=== PATIENT | male | born 1960 | race Caucasian/White ===

== ENCOUNTER 2016-12-24 10:25 | Day surgery (SDC) | payer OTHER ==
[~2016-12-24 10:25] MED LIST: Cefuroxime 10 MG/ML SYRINGE EYERT SCH; Lidocaine 1% PF 2 ML SDV INJECT SCH; Pilocarpine 4% Ophth Soln 15 ML Bot EYERT SCH
[2016-12-24] MEDS: Polymyxin B/Trimethoprim 10 ML Bottle EYERT SCH ×3 (11:39→13:34)
--- NOTE | 2016-12-24 11:42 | PCM.PREANE ---
Preanesthetic Assessment - Anesthesia/Transfusion/Family Hx Anesthesia History: Prior Anesthesia Without Reaction Family History of Anesthesia Reaction: No Transfusion History: No Prior Transfusion(s) - Review of Systems General: No Symptoms Pulmonary: Cough Cardiovascular: Dyspnea on Exertion Gastrointestinal: No Symptoms Neurological: No Symptoms Other: Reports: None - Physical Assessment NPO Status Date: 12/23/16 NPO Status Time: 00:00 Pulse: 54 O2 Sat by Pulse Oximetry: 96 Respiratory Rate: 20 Blood Pressure: 173/65 Temperature: 36.7 C Height: 1.63 m Weight: 136.078 kg ASA Class: 3 Mental Status: Alert & Oriented x3 Airway Class: Mallampati = 3 Dentition: Reports: Missing Tooth/Teeth, Caries Thyro-Mental Finger Breadths: 2 Mouth Opening Finger Breadths: 2 ROM/Head Extension: Limited/Partial Lungs: Clear to Auscultation, Normal Respiratory Effort Cardiovascular: Regular Rate, Regular Rhythm, No Murmurs - Allergies Allergies/Adverse Reactions: Allergies Allergy/AdvReac Type Severity Reaction Status Date / Time No Known Allergies Allergy Verified 12/23/16 14:47 - Blood Blood Available: No Product(s) Available: None - Anesthesia Plan Pre-Op Medication Ordered: None - Acknowledgements Anesthesia Type Planned: MAC Pt an Appropriate Candidate for the Planned Anesthesia: Yes Alternatives and Risks of Anesthesia Discussed w Pt/Guardian: Yes Pt/Guardian Understands and Agrees with Anesthesia Plan: Yes PreAnesthesia Questionnaire Cardiovascular History: Reports: [place] (2005) - SUBSTANCE USE Days Per Week of Alcohol Use: 1 Number of Drinks Per Day: 6 Total Drinks Per Week: 6 Recreational Drug Use History: No - HOME MEDS Home Medications: Home Meds Aspirin 192 mg PO DAILY 12/23/16 [History] Escitalopram [Lexapro] 10 mg PO DAILY 12/23/16 [History] Lisinopril [Lisinopril] 20 mg PO DAILY 12/23/16 [History] Rosuvastatin Calcium [Rosuvastatin Calcium] 10 mg PO DAILY 12/23/16 [History] Timolol Maleate [Timoptic 0.25% Ophth Soln] 1 drop EYEBOTH ASDIRECTED 12/23/16 [ History] - CURRENT (IN HOUSE) MEDS Current Meds: Current Medications Brimonidine Tartrate (Alphagan 0.2% Ophth Soln) 0 ml EYERT ASDIRECTED EARL Stop: 12/24/16 18:00 Cefuroxime Sodium (Zinacef) 0 mg EYERT ASDIRECTED EARL Stop: 12/24/16 18:00 Lidocaine HCl (Xylocaine-Mpf 1%) 10 ml INJECT ASDIRECTED EARL Stop: 12/24/16 18:00 Phenylephrine HCl ([place]-Synephrine 2.5% Ophth Soln) 0 ml EYERT ASDIRECTED EARL Stop: 12/24/16 18:00 Pilocarpine HCl (Pilocar 4% Ophth Soln) 0 ml EYERT ASDIRECTED EARL Stop: 12/24/16 18:00 Polymyxin/Trimethoprim Sulfate (Polytrim Ophth Soln) 0 ml EYERT ASDIRECTED EARL Stop: 12/24/16 18:00 Tetracaine HCl (Tetracaine 0.5% Steri-Unit Ashly) 0 ml EYERT ASDIRECTED EARL Stop: 12/24/16 18:00 Tropicamide (Mydriacyl 1% Ophth Soln) 0 ml EYERT ASDIRECTED EARL Stop: 12/24/16 18:00
[2016-12-24] MEDS: Brimonidine 0.2% Ophth Soln 5 ML Bottle EYERT SCH ×3 (11:44→13:34)
[2016-12-24] MEDS: Phenylephrine 2.5% Ophth Soln 2 ML Bot EYERT SCH ×5 (11:50→13:10)
[2016-12-24] MEDS: Tetracaine HCl/PF 0.5% 4 ML Bottle EYERT SCH ×2 (13:04→13:23)
--- NOTE | 2016-12-24 13:33 | PCM48HPAN ---
Post Anesthesia Note - EVALUATION WITHIN 48HRS OF ANESTHETIC Vital Signs in Normal Range: Yes Patient Participated in Evaluation: Yes Respiratory Function Stable: Yes Airway Patent: Yes Cardiovascular Function Stable: Yes Hydration Status Stable: Yes Pain Control Satisfactory: Yes Nausea and Vomiting Control Satisfactory: Yes Mental Status Recovered: Yes
== END 2016-12-24 13:46 | disposition home or self-care (01) ==
LOC: JD.SDS 10:25
PROVIDERS: ATTEND Ophthalmology
DX: H25.89 Other age-related cataract (principal); H25.812 Combined forms of age-related cataract, left eye; H31.011 Macula scars of posterior pole (postinflammatory) (post-traumatic), right eye; H02.831 Dermatochalasis of right upper eyelid; H02.834 Dermatochalasis of left upper eyelid; E78.00 Pure hypercholesterolemia, unspecified; I10 Essential (primary) hypertension; Z87.891 Personal history of nicotine dependence; Z98.890 Other specified postprocedural states; Z79.899 Other long term (current) drug therapy
CPT/HCPCS: 66984; A9270; C1780; J0697

== ENCOUNTER → 2017-02-25 | Day surgery (SDC) | payer OTHER ==
[~2017-02-25] MED LIST changes: +Brimonidine 0.2% Ophth Soln 5 ML Bottle EYERT SCH; -Cefuroxime 10 MG/ML SYRINGE EYERT SCH; -Lidocaine 1% PF 2 ML SDV INJECT SCH; +Phenylephrine 2.5% Ophth Soln 2 ML Bot EYERT SCH; -Pilocarpine 4% Ophth Soln 15 ML Bot EYERT SCH
== END ==
LOC: JD.SDS 09:32
PROVIDERS: ATTEND Ophthalmology
DX: H26.491 Other secondary cataract, right eye (principal); H40.043 Steroid responder, bilateral; H02.831 Dermatochalasis of right upper eyelid; H02.834 Dermatochalasis of left upper eyelid; H31.011 Macula scars of posterior pole (postinflammatory) (post-traumatic), right eye; I10 Essential (primary) hypertension; E78.00 Pure hypercholesterolemia, unspecified; Z98.41 Cataract extraction status, right eye; Z96.1 Presence of intraocular lens; Z79.899 Other long term (current) drug therapy; Z98.890 Other specified postprocedural states; Z87.891 Personal history of nicotine dependence

== ENCOUNTER 2017-12-09 13:01 | Emergency (ER) | payer OTHER ==
[2017-12-09] MEDS ORDERED: Sodium Chloride 0.9% 1,000 ML IV ONE (13:37)
--- NOTE | 2017-12-09 14:14 | EDM.PDOC ---
ED HPI GENERAL MEDICAL PROBLEM - General Chief Complaint: General Stated Complaint: DIZZINESS/STIFF MUSCLES Time Seen by Provider: 12/09/17 13:10 - History of Present Illness INITIAL COMMENTS - FREE TEXT/NARRATIVE: Patient is a 57-year-old male accompanied by his mother presented today to the emergency department for an evaluation dizziness and vertigo type sensation which has started earlier this morning approximately 4 AM. He stated that he was laying on his back and rapidly turning towards his left side earlier this morning approximately 4 AM when he started having dizziness type sensation which she describes as the whole room was spinning, which she stated that lasted less than few seconds. He also stated that he has similar type of sensation approximately 3 months ago which subsided on its own without any treatment. Prior to arrival to the emergency department, he went to walk in clinic that he was advised to come to the emergency department for further evaluation. Currently he denies any dizziness or vertigo type sensation. He further denies any symptoms of headache, visual changes, tinnitus, fever, chest pain or palpitation, shortness of breath, or paresthesia. He denies any history of stroke, seizure, neck or back pain. He denies any pain in general. However he stated that he has a history of anxiety and does take lorazepam on a daily basis. He denies any other concerns at this time. - Related Data Allergies Allergy/AdvReac Type Severity Reaction Status Date / Time No Known Allergies Allergy Verified 12/09/17 13:15 Home Meds: Home Meds Aspirin 81 mg PO DAILY 12/23/16 [History] Escitalopram [Lexapro] 10 mg PO DAILY 12/23/16 [History] Lisinopril 20 mg PO DAILY 12/23/16 [History] Rosuvastatin Calcium 10 mg PO DAILY 12/23/16 [History] Meclizine [Antivert] 25 mg PO BID PRN #14 tab 12/09/17 [Rx] Past Medical History Cardiovascular History: Reports: Hypert[place], [place] Psychiatric History: Reports: Anxiety Dermatologic History: Reports: Psoriasis Social & Family History - Tobacco Use Smoking Status *Q: Former Smoker Used Tobacco, but Quit: Yes Month/Year Tobacco Last Used: 2005 - Living Situation & Occupation Living situation: Reports: with Spouse, Other Occupation: Other ED ROS GENERAL - Review of Systems Review Of Systems: ROS reveals no pertinent complaints other than HPI. ED EXAM, GENERAL - Physical Exam Exam: See Below Exam Limited By: No Limitations General Appearance: Alert, WD/WN, No Apparent Distress, Anxious Ears: Normal External Exam, Normal Canal, Hearing Grossly Normal, Normal TMs Ear Exam: Bilateral Ear: Auricle Normal, Canal Normal, TM normal Nose: Normal Inspection, Normal Mucosa, No Blood Throat/Mouth: Normal Inspection, Normal Lips, Normal Teeth, Normal Gums, Normal Oropharynx, Normal Voice, No Airway Compromise Head: Atraumatic, Normocephalic Neck: Normal Inspection, Supple, Non-Tender, Full Range of Motion Respiratory/Chest: No Respiratory Distress, Lungs Clear, Normal Breath Sounds Cardiovascular: Normal Peripheral Pulses, Regular Rate, Rhythm GI/Abdominal: Normal Bowel Sounds, Soft, Non-Tender Extremities: Normal Inspection, Normal Range of Motion, Non-Tender, Normal Capillary Refill, No Pedal Edema Neurological: Alert, Oriented, Normal Cognition, Normal Gait, Normal Reflexes, No Motor/Sensory Deficits, Other (Negative Belinda's and Errol-Hallpike maneuver) Psychiatric: Normal Affect, Normal Mood Skin Exam: Warm, Dry, Intact, Normal Color, No Rash Course - Vital Signs Last Recorded V/S: Last Vital Signs Temp 37.1 C 12/09/17 13:15 Pulse 78 12/09/17 13:15 Resp 18 12/09/17 13:15 BP 179/84 H 12/09/17 13:15 Pulse Ox 96 12/09/17 13:15 - Orders/Labs/Meds Labs: Laboratory Tests 12/09/17 12/09/17 Range/Units 14:00 14:00 WBC 11.30 H (4.23-9.07) K/mm3 RBC 4.76 (4.63-6.08) M/mm3 Hgb 14.2 (13.7-17.5) gm/L Hct 42.0 (40.1-51.0) % MCV 88.2 (79.0-92.2) fl MCH 29.8 (25.7-32.2) pg MCHC 33.8 (32.2-35.5) g/dl RDW Std Deviation 41.7 (35.1-43.9) fL Plt Count 205 (163-337) K/mm3 MPV 9.9 (9.4-12.3) fl Neut % (Auto) 78.2 H (34.0-67.9) % Lymph % (Auto) 11.2 L (21.8-53.1) % Branch % (Auto) 7.6 (5.3-12.2) % Eos % (Auto) 2.2 (0.8-7.0) Baso % (Auto) 0.4 (0.1-1.2) % Neut # (Auto) 8.83 H (1.78-5.38) K/mm3 Lymph # (Auto) 1.27 L (1.32-3.57) K/mm3 Branch # (Auto) 0.86 H (0.30-0.82) K/mm3 Eos # (Auto) 0.25 (0.04-0.54) K/mm3 Baso # (Auto) 0.05 (0.01-0.08) K/mm3 Sodium 137 (136-145) mEq/L Potassium 3.9 (3.5-5.1) mEq/L Chloride 103 (98-107) mEq/L Carbon Dioxide 27 (21-32) mEq/L Anion Gap 10.9 (5-15) BUN 13 (7-18) mg/dL Creatinine 0.9 (0.7-1.3) mg/dL Est Cr Clr Drug Dosing 92.38 mL/min Estimated GFR (MDRD) > 60 (>60) mL/min BUN/Creatinine Ratio 14.4 (14-18) Glucose 100 (74-106) mg/dL Calcium 8.6 (8.5-10.1) mg/dL Total Bilirubin 0.4 (0.2-1.0) mg/dL AST 17 (15-37) U/L ALT 30 (16-63) U/L Alkaline Phosphatase 83 (46-116) U/L Total Protein 7.0 (6.4-8.2) g/dl Albumin 3.3 L (3.4-5.0) g/dl Globulin 3.7 gm/dL Albumin/Globulin Ratio 0.9 L (1-2) Meds: Medications Discontinued Medications Generic Name Dose Route Start Last Admin Trade Name Freq PRN Reason Stop Dose Admin Sodium Chloride 1,000 mls @ 999 mls/hr 12/09/17 13:37 12/09/17 14:15 Normal Saline IV 12/09/17 14:37 999 mls/hr ONETIME ONE Administration Meclizine HCl 50 mg 12/09/17 13:39 12/09/17 14:17 Antivert PO 12/09/17 13:40 50 mg ONETIME ONE Administration - Re-Assessments/Exams Free Text/Narrative Re-Assessment/Exam: 12/09/17 15:00 At this time, patient reevaluated at bedside. Patient appears to be in no acute distress, denies any dizziness, vertigo type sensation, headache, shortness of breath, chest or palpitation at this time. He stated that he felt much better after the use of intravenous normal saline bolus and meclizine. Patient is ready for discharge. Departure - Departure Time of Disposition: 15:13 Disposition: Home, Self-Care 01 Condition: Good Clinical Impression: Vertigo Prescriptions: Meclizine [Antivert] 25 mg PO BID PRN #14 tab PRN Reason: Dizziness Instructions: Vertigo, [id number] Referrals: Etsefani Auguste PA-C [Primary Care Provider] - 3 Days (Please call your primary care provider for reevaluation of today's emergency room visit) Forms: ED Department Discharge Additional Instructions: Patient has been advised to minimize alcohol intake. Further advice to drink plenty of fluid to prevent dehydration. Patient verbalized understanding of the given instructions and agrees to comply.
== END 2017-12-09 15:30 | disposition home or self-care (01) ==
LOC: JD.ED 13:01
DX: R42 Dizziness and giddiness (principal); I10 Essential (primary) hypertension; Z87.891 Personal history of nicotine dependence; Z79.82 Long term (current) use of aspirin; Z79.899 Other long term (current) drug therapy
CPT/HCPCS: 36415; 80053; 85025; 96360; 99284; A9270; J7040

== ENCOUNTER 2021-05-09 00:40 | Emergency (ER) | payer OTHER ==
[2021-05-09] MEDS ORDERED: Orphenadrine 100 MG Tab.ER PO STA (02:40)
== END 2021-05-09 02:52 | disposition home or self-care (01) ==
LOC: JD.ED 00:40
DX: R07.82 Intercostal pain (principal); I25.10 Atherosclerotic heart disease of native coronary artery without angina pectoris; E11.9 Type 2 diabetes mellitus without complications; I10 Essential (primary) hypertension; E66.9 Obesity, unspecified; Z79.82 Long term (current) use of aspirin; Z79.899 Other long term (current) drug therapy; Z86.16 Personal history of COVID-19; Z87.891 Personal history of nicotine dependence; Z68.43 Body mass index [BMI] 50.0-59.9, adult
CPT/HCPCS: 71046; 99283; A9270

== ENCOUNTER 2022-04-28 16:59 | Emergency (ER) | payer OTHER | END 2022-04-28 19:40 | disposition home or self-care (01) | LOC: JD.ED 16:59 | DX: K62.5 Hemorrhage of anus and rectum (principal); I25.10 Atherosclerotic heart disease of native coronary artery without angina pectoris; E11.9 Type 2 diabetes mellitus without complications; E66.9 Obesity, unspecified; Z68.43 Body mass index [BMI] 50.0-59.9, adult; Z86.16 Personal history of COVID-19; Z79.899 Other long term (current) drug therapy; Z79.84 Long term (current) use of oral hypoglycemic drugs | CPT/HCPCS: 36415; 85014; 85018; 99283 ==

== ENCOUNTER 2023-04-24 20:18 | Emergency (ER) | payer OTHER ==
[2023-04-24] MEDS ORDERED: Sodium Chloride 0.9% 10 ML Syringe FLUSH PRN (20:34)
[2023-04-24 20:43] LABS: BASOPHILS ABSOLUTE AUTO 0.1 K/mm3 (0.0-0.2); BASOPHILS PERCENT AUTO 0.9 % (0.0-1.0); EOSINOPHILS ABSOLUTE AUTO 0.5 K/mm3 (0.0-0.4); EOSINOPHILS PERCENT AUTO 3.8 % (0.0-6.0); HEMATOCRIT 48.8 % (42.0-52.0); IMMATURE GRAN ABSOLUTE AUTO 0.09 K/mm3 (0.00-0.05); IMMATURE GRAN PERCENT AUTO 0.7 % (0.0-0.4); LYMPHOCYTES ABSOLUTE AUTO 2.4 K/mm3 (1.0-4.8); LYMPHOCYTES PERCENT AUTO 17.9 % (24.0-44.0); MEAN CORPUSCULAR HEMOGLOBIN 30.7 pg (28.0-32.0); MEAN CORPUSCULAR HGB CONC 32.8 g/dl (32.0-36.0); MEAN CORPUSCULAR VOLUME 93.7 fl (83.0-99.0); MEAN PLATELET VOLUME 10.2 fl (9.4-12.4); MONOCYTES PERCENT AUTO 7.4 % (0.0-8.0); NEUTROPHILS ABSOLUTE AUTO 9.4 K/mm3 (1.8-7.7); NEUTROPHILS PERCENT AUTO 69.3 % (41.0-71.0); PLATELET COUNT,PLT 221 K/mm3 (150-400); RED BLOOD CELL COUNT 5.21 M/mm3 (4.52-5.90); WHITE BLOOD CELL COUNT,WBC 13.49 K/mm3 (3.9-11.3)
[2023-04-24] MEDS: Aspirin 81 MG Tab.Chew PO ONE (20:45)
[2023-04-24 21:09] LABS: A/G RATIO 0.8 (1-2); ALBUMIN 3.6 g/dl (3.4-5.0); BILIRUBIN TOTAL 0.4 mg/dL (0.2-1.0); CALCIUM 8.8 mg/dL (8.5-10.1); EST CRCL DRUG DOSING (CG) 62.49 mL/min
[2023-04-24] MEDS: Azithromycin 250 MG Tab PO ONE (23:32)
[2023-04-24] MEDS: Amoxicillin/Clavulanate K 875-125 MG Tab PO ONE (23:32)
== END 2023-04-25 | disposition home or self-care (01) ==
LOC: JD.ED 20:18
DX: R07.9 Chest pain, unspecified (principal); J18.9 Pneumonia, unspecified organism; I10 Essential (primary) hypertension; I25.10 Atherosclerotic heart disease of native coronary artery without angina pectoris; E11.9 Type 2 diabetes mellitus without complications; E66.9 Obesity, unspecified; Z87.891 Personal history of nicotine dependence; Z79.84 Long term (current) use of oral hypoglycemic drugs; Z79.899 Other long term (current) drug therapy; Z79.82 Long term (current) use of aspirin; Z68.43 Body mass index [BMI] 50.0-59.9, adult
CPT/HCPCS: 36415; 71046; 80053; 84484; 85025; 85379; 93005; 99285; A9270

== ENCOUNTER 2024-01-04 14:08 | Inpatient (IN) | payer OTHER ==
[2024-01-04] MEDS: Furosemide 40 MG/4 ML VIAL IVPUSH ONE ×2 (15:10→23:42)
[2024-01-04] MEDS: Diltiazem 25 MG/5 ML SDV IVPUSH ONE ×2 (15:10→17:26)
[2024-01-04 15:13] LABS: BASOPHILS ABSOLUTE AUTO 0.1 K/mm3 (0.0-0.2); BASOPHILS PERCENT AUTO 0.8 % (0.0-1.0); EOSINOPHILS ABSOLUTE AUTO 0.4 K/mm3 (0.0-0.4); EOSINOPHILS PERCENT AUTO 2.1 % (0.0-6.0); HEMATOCRIT 47.4 % (42.0-52.0); HEMOGLOBIN 14.9 gm/dl (14.0-18.0); IMMATURE GRAN ABSOLUTE AUTO 0.31 K/mm3 (0.00-0.05); IMMATURE GRAN PERCENT AUTO 1.9 % (0.0-0.4); LYMPHOCYTES ABSOLUTE AUTO 2.4 K/mm3 (1.0-4.8); LYMPHOCYTES PERCENT AUTO 14.5 % (24.0-44.0); MEAN CORPUSCULAR HEMOGLOBIN 29.8 pg (28.0-32.0); MEAN CORPUSCULAR HGB CONC 31.4 g/dl (32.0-36.0); MEAN CORPUSCULAR VOLUME 94.8 fl (83.0-99.0); MEAN PLATELET VOLUME 10.3 fl (9.4-12.4); MONOCYTES ABSOLUTE AUTO 1.2 K/mm3 (0.0-0.8); NEUTROPHILS ABSOLUTE AUTO 12.1 K/mm3 (1.8-7.7); NEUTROPHILS PERCENT AUTO 73.7 % (41.0-71.0); PLATELET COUNT,PLT 406 K/mm3 (150-400); WHITE BLOOD CELL COUNT,WBC 16.37 K/mm3 (3.9-11.3)
[2024-01-04] MEDS: Diltiazem 125 MG in Sodium Chloride 0.9% 100 ML IV SCH (15:20)
[2024-01-04] MEDS: Sodium Chloride 0.9% 1,000 ML IV SCH (15:23)
[2024-01-04 15:27] LABS: LACTIC ACID 0.9 mmol/L (0.4-2.0)
[2024-01-04 15:34] LABS: A/G RATIO 0.4 (1-2); ALBUMIN 2.3 g/dl (3.4-5.0); ANION GAP 10.2 (5-15); BILIRUBIN TOTAL 0.4 mg/dL (0.2-1.0); C-REACTIVE PROTEIN 2.46 mg/dL (<0.30); CALCIUM 8.4 mg/dL (8.5-10.1); CREATININE 1.2 mg/dL (0.7-1.3); EST CRCL DRUG DOSING (CG) 43.98 mL/min; MAGNESIUM 1.9 mg/dL (1.8-2.4); POTASSIUM,K 5.2 mEq/L (3.5-5.1); PROTEIN TOTAL,TP 7.7 g/dl (6.4-8.2); TSH 3.641 uIU/mL (0.358-3.74)
[2024-01-04 15:41] LABS: HEMOGLOBIN A1C 6.1 %
[2024-01-04 16:31] LABS: APPEARANCE,URINE CLEAR (Clear); BILIRUBIN,URINE NEGATIVE (Negative); COLOR,URINE YELLOW (Yellow); GLUCOSE,URINE NEGATIVE (Negative); KETONES,URINE NEGATIVE (Negative); LEUKOCYTE ESTERASE,URINE TRACE (Negative); NITRITE,URINE NEGATIVE (Negative); OCCULT BLOOD,URINE NEGATIVE (Negative); PROTEIN,URINE NEGATIVE (Negative); UROBILINOGEN,URINE 0.2 (0.2-1.0)
[2024-01-04 16:43] LABS: BACTERIA,URINE FEW /hpf (FEW); MUCUS,URINE RARE /hpf (FEW); RBC,URINE 0-5 /hpf (0-5); SQUAMOUS EPITHELIAL CELLS,UR NOT SEEN /hpf (0-5)
[2024-01-04] MEDS: Diltiazem 300 MG Cap.CD PO ONE (17:26)
[2024-01-04] MEDS: cefTRIAXone 2 GM in Sodium Chloride 0.9% 100 ML IV ONE (18:56)
[2024-01-04] MEDS: Apixaban 5 MG Tab PO ONE (23:49)
[2024-01-04] MEDS: Apixaban 5 MG Tab ONE (23:53)
[2024-01-04] MEDS: Furosemide 40 MG/4 ML VIAL ONE (23:53)
[2024-01-05] MEDS: Ondansetron 4 MG/2 ML SDV IVPUSH ONE (03:36)
[2024-01-05] MEDS ORDERED: Ondansetron 4 MG Tab.DIS PO PRN (08:13)
[2024-01-05] MEDS ORDERED: Non-Formulary Medication 1 Each (Escitalopram 10 MG Tablet) PO SCH (09:00)
[2024-01-05] MEDS: Citalopram 20 MG Tab PO SCH (10:10)
[2024-01-05] MEDS: Rosuvastatin 10 MG Tab PO SCH (10:10)
[2024-01-05] MEDS: Doxycycline 100 MG in Sodium Chloride 0.9% 100 ML IV SCH (10:10)
[2024-01-05] MEDS: Aspirin 81 MG Tab.Chew PO SCH (10:10)
[2024-01-05] MEDS: Furosemide 40 MG/4 ML VIAL IVPUSH ONE (14:11)
[2024-01-05] MEDS ORDERED: Acetaminophen 325 MG Tab PO PRN (14:41)
[2024-01-05 15:26] LABS: ANION GAP 7.1 (5-15); CALCIUM 8.5 mg/dL (8.5-10.1); EST CRCL DRUG DOSING (CG) 31.24 mL/min
[2024-01-05 15:59] LABS: POTASSIUM,K 6.1 mEq/L (3.5-5.1)
[2024-01-05] MEDS: Sodium Chloride 0.9% 10 ML Syringe FLUSH PRN (16:14)
[2024-01-05] MEDS: Iopamidol 755 Mg/ML 100 ML Bottle IVPUSH ONE (16:14)
[2024-01-05] MEDS: Sodium Chloride 0.9% 45 ML IV SCH (16:18)
[2024-01-05] MEDS: Diltiazem 300 MG Cap.CD PO SCH (16:37)
[2024-01-05] MEDS: Insulin Regular, Human 100 Units/ML 10 ML Vial ONE (17:36)
[2024-01-05] MEDS: Insulin Regular, Human 100 Units/ML 3 ML Vial IV ONE (17:36)
[2024-01-05] MEDS: 50% Dextrose in Water 50 ML SDV IV ONE (17:37)
[2024-01-05] MEDS: Sodium Chloride 0.9% 500 ML IV ONE (17:37)
[2024-01-05] MEDS: 50% Dextrose in Water 50 ML Syringe ONE (17:37)
[2024-01-05] MEDS: Apixaban 5 MG Tab PO SCH (20:25)
[2024-01-05] MEDS: Pantoprazole 40 MG Tab.CR PO SCH (20:26)
[2024-01-06 04:37] LABS: BASOPHILS ABSOLUTE AUTO 0.1 K/mm3 (0.0-0.2); BASOPHILS PERCENT AUTO 0.3 % (0.0-1.0); EOSINOPHILS ABSOLUTE AUTO 0.1 K/mm3 (0.0-0.4); EOSINOPHILS PERCENT AUTO 0.3 % (0.0-6.0); HEMATOCRIT 43.7 % (42.0-52.0); HEMOGLOBIN 13.2 gm/dl (14.0-18.0); IMMATURE GRAN ABSOLUTE AUTO 0.23 K/mm3 (0.00-0.05); IMMATURE GRAN PERCENT AUTO 0.8 % (0.0-0.4); LYMPHOCYTES ABSOLUTE AUTO 1.9 K/mm3 (1.0-4.8); LYMPHOCYTES PERCENT AUTO 6.7 % (24.0-44.0); MEAN CORPUSCULAR HEMOGLOBIN 30.1 pg (28.0-32.0); MEAN CORPUSCULAR HGB CONC 30.2 g/dl (32.0-36.0); MEAN CORPUSCULAR VOLUME 99.5 fl (83.0-99.0); MEAN PLATELET VOLUME 10.1 fl (9.4-12.4); MONOCYTES ABSOLUTE AUTO 1.3 K/mm3 (0.0-0.8); MONOCYTES PERCENT AUTO 4.5 % (0.0-8.0); NEUTROPHILS ABSOLUTE AUTO 24.4 K/mm3 (1.8-7.7); NEUTROPHILS PERCENT AUTO 87.4 % (41.0-71.0); PLATELET COUNT,PLT 365 K/mm3 (150-400); RED BLOOD CELL COUNT 4.39 M/mm3 (4.52-5.90); WHITE BLOOD CELL COUNT,WBC 27.93 K/mm3 (3.9-11.3)
[2024-01-06 05:14] LABS: A/G RATIO 0.5 (1-2); ALBUMIN 2.3 g/dl (3.4-5.0); ANION GAP 8.5 (5-15); BILIRUBIN TOTAL 0.4 mg/dL (0.2-1.0); BUN/CREATININE RATIO 17.4 (14-18); CALCIUM 8.2 mg/dL (8.5-10.1); CREATININE 1.9 mg/dL (0.7-1.3); EST CRCL DRUG DOSING (CG) 32.89 mL/min; PROTEIN TOTAL,TP 7.4 g/dl (6.4-8.2)
[2024-01-06 05:25] LABS: POTASSIUM,K 6.5 mEq/L (3.5-5.1)
[2024-01-06] MEDS ORDERED: 50% Dextrose in Water 50 ML SDV IV ONE (05:31)
[2024-01-06 06:01] LABS: SLIDE REVIEW ABNORMAL SMEAR
[2024-01-06] MEDS: Sodium Chloride 0.9% 1,000 ML IV ONE (06:41)
[2024-01-06] MEDS: Insulin Regular, Human 100 Units/ML 10 ML Vial IV ONE (07:48)
[2024-01-06] MEDS: Calcium Gluconate 10% 1 GM/10 ML SDV IVPUSH ONE (07:48)
[2024-01-06] MEDS: 50% Dextrose in Water 50 ML Syringe IV ONE (07:49)
[2024-01-06] MEDS: Sodium Zirconium Cyclosilicate 10 GM Packet PO SCH (07:53)
[2024-01-06] MEDS: Piperacillin/Tazobactam 4.5 GM in Sodium Chloride 0.9% 100 ML IV ONE (09:22)
[2024-01-06 10:45] LABS: APPEARANCE,URINE CLEAR (Clear); BILIRUBIN,URINE NEGATIVE (Negative); COLOR,URINE YELLOW (Yellow); GLUCOSE,URINE NEGATIVE (Negative); KETONES,URINE NEGATIVE (Negative); LEUKOCYTE ESTERASE,URINE TRACE (Negative); NITRITE,URINE NEGATIVE (Negative); OCCULT BLOOD,URINE 1+ (Negative); PH,URINE 5.5 (5.0-8.0); PROTEIN,URINE 1+ (Negative); UROBILINOGEN,URINE 0.2 (0.2-1.0)
[2024-01-06 11:16] LABS: BACTERIA,URINE MANY /hpf (FEW); MUCUS,URINE FEW /hpf (FEW); SQUAMOUS EPITHELIAL CELLS,UR 0-5 /hpf (0-5)
[2024-01-06] MEDS: Piperacillin/Tazobactam 4.5 GM in Sodium Chloride 0.9% 100 ML IV SCH (13:07)
[2024-01-06 15:41] LABS: ANION GAP 8.9 (5-15); BUN/CREATININE RATIO 20.6 (14-18); CALCIUM 8.3 mg/dL (8.5-10.1); CREATININE 1.8 mg/dL (0.7-1.3); EST CRCL DRUG DOSING (CG) 34.72 mL/min; POTASSIUM,K 5.9 mEq/L (3.5-5.1)
[2024-01-06] MEDS: 50% Dextrose in Water 50 ML Syringe IVPUSH ONE (18:58)
[2024-01-06] MEDS: Insulin Regular, Human 100 Units/ML 10 ML Vial SUBCUT ONE (18:59)
[2024-01-07 04:42] LABS: BASOPHILS ABSOLUTE AUTO 0.1 K/mm3 (0.0-0.2); BASOPHILS PERCENT AUTO 0.8 % (0.0-1.0); EOSINOPHILS ABSOLUTE AUTO 0.2 K/mm3 (0.0-0.4); EOSINOPHILS PERCENT AUTO 1.3 % (0.0-6.0); HEMATOCRIT 39.7 % (42.0-52.0); HEMOGLOBIN 12.1 gm/dl (14.0-18.0); IMMATURE GRAN ABSOLUTE AUTO 0.08 K/mm3 (0.00-0.05); IMMATURE GRAN PERCENT AUTO 0.5 % (0.0-0.4); LYMPHOCYTES ABSOLUTE AUTO 1.2 K/mm3 (1.0-4.8); LYMPHOCYTES PERCENT AUTO 8.1 % (24.0-44.0); MEAN CORPUSCULAR HEMOGLOBIN 29.7 pg (28.0-32.0); MEAN CORPUSCULAR HGB CONC 30.5 g/dl (32.0-36.0); MEAN CORPUSCULAR VOLUME 97.5 fl (83.0-99.0); MEAN PLATELET VOLUME 10.3 fl (9.4-12.4); MONOCYTES ABSOLUTE AUTO 0.8 K/mm3 (0.0-0.8); MONOCYTES PERCENT AUTO 5.3 % (0.0-8.0); NEUTROPHILS ABSOLUTE AUTO 12.6 K/mm3 (1.8-7.7); PLATELET COUNT,PLT 325 K/mm3 (150-400); RED BLOOD CELL COUNT 4.07 M/mm3 (4.52-5.90)
[2024-01-07 05:12] LABS: A/G RATIO 0.4 (1-2); ALBUMIN 2.1 g/dl (3.4-5.0); ANION GAP 8.5 (5-15); BILIRUBIN TOTAL 0.3 mg/dL (0.2-1.0); BUN/CREATININE RATIO 21.5 (14-18); CALCIUM 8.1 mg/dL (8.5-10.1); CREATININE 1.3 mg/dL (0.7-1.3); EST CRCL DRUG DOSING (CG) 48.07 mL/min; PROTEIN TOTAL,TP 6.9 g/dl (6.4-8.2)
[2024-01-07 05:35] LABS: POTASSIUM,K 5.5 mEq/L (3.5-5.1)
[2024-01-07] MEDS: Diltiazem 240 MG Cap.ER PO SCH (15:36)
[2024-01-08 04:36] LABS: BASOPHILS ABSOLUTE AUTO 0.2 K/mm3 (0.0-0.2); BASOPHILS PERCENT AUTO 1.5 % (0.0-1.0); EOSINOPHILS ABSOLUTE AUTO 0.3 K/mm3 (0.0-0.4); EOSINOPHILS PERCENT AUTO 2.4 % (0.0-6.0); HEMATOCRIT 40.7 % (42.0-52.0); HEMOGLOBIN 12.6 gm/dl (14.0-18.0); IMMATURE GRAN ABSOLUTE AUTO 0.07 K/mm3 (0.00-0.05); IMMATURE GRAN PERCENT AUTO 0.6 % (0.0-0.4); LYMPHOCYTES ABSOLUTE AUTO 1.4 K/mm3 (1.0-4.8); LYMPHOCYTES PERCENT AUTO 11.5 % (24.0-44.0); MEAN CORPUSCULAR HEMOGLOBIN 29.5 pg (28.0-32.0); MEAN CORPUSCULAR VOLUME 95.3 fl (83.0-99.0); MEAN PLATELET VOLUME 10.2 fl (9.4-12.4); MONOCYTES ABSOLUTE AUTO 0.9 K/mm3 (0.0-0.8); MONOCYTES PERCENT AUTO 7.1 % (0.0-8.0); NEUTROPHILS ABSOLUTE AUTO 9.3 K/mm3 (1.8-7.7); NEUTROPHILS PERCENT AUTO 76.9 % (41.0-71.0); PLATELET COUNT,PLT 312 K/mm3 (150-400); RED BLOOD CELL COUNT 4.27 M/mm3 (4.52-5.90); WHITE BLOOD CELL COUNT,WBC 12.02 K/mm3 (3.9-11.3)
[2024-01-08 04:44] LABS: ANION GAP 9.4 (5-15); BUN/CREATININE RATIO 16.7 (14-18); C-REACTIVE PROTEIN 2.14 mg/dL (<0.30); CALCIUM 8.3 mg/dL (8.5-10.1); CREATININE 0.9 mg/dL (0.7-1.3); EST CRCL DRUG DOSING (CG) 69.43 mL/min; POTASSIUM,K 4.4 mEq/L (3.5-5.1)
[2024-01-08] MEDS: Furosemide 40 MG/4 ML VIAL IVPUSH ONE (13:43)
[2024-01-08] MEDS: Iopamidol 612 MG/ML 100 ML Bottle IVPUSH ONE (13:56)
[2024-01-09 04:27] LABS: BASOPHILS ABSOLUTE AUTO 0.2 K/mm3 (0.0-0.2); BASOPHILS PERCENT AUTO 1.7 % (0.0-1.0); EOSINOPHILS ABSOLUTE AUTO 0.4 K/mm3 (0.0-0.4); EOSINOPHILS PERCENT AUTO 4.1 % (0.0-6.0); HEMATOCRIT 41.9 % (42.0-52.0); HEMOGLOBIN 13.4 gm/dl (14.0-18.0); IMMATURE GRAN ABSOLUTE AUTO 0.03 K/mm3 (0.00-0.05); IMMATURE GRAN PERCENT AUTO 0.3 % (0.0-0.4); LYMPHOCYTES ABSOLUTE AUTO 1.5 K/mm3 (1.0-4.8); LYMPHOCYTES PERCENT AUTO 16.1 % (24.0-44.0); MEAN CORPUSCULAR HEMOGLOBIN 29.7 pg (28.0-32.0); MEAN CORPUSCULAR VOLUME 92.9 fl (83.0-99.0); MEAN PLATELET VOLUME 9.7 fl (9.4-12.4); MONOCYTES ABSOLUTE AUTO 0.8 K/mm3 (0.0-0.8); MONOCYTES PERCENT AUTO 8.5 % (0.0-8.0); NEUTROPHILS ABSOLUTE AUTO 6.5 K/mm3 (1.8-7.7); NEUTROPHILS PERCENT AUTO 69.3 % (41.0-71.0); PLATELET COUNT,PLT 339 K/mm3 (150-400); RED BLOOD CELL COUNT 4.51 M/mm3 (4.52-5.90); WHITE BLOOD CELL COUNT,WBC 9.38 K/mm3 (3.9-11.3)
[2024-01-09 04:42] LABS: CALCIUM 8.5 mg/dL (8.5-10.1); EST CRCL DRUG DOSING (CG) 62.49 mL/min
[2024-01-09] MEDS: Diltiazem 300 MG Cap.CD PO SCH (09:01)
[2024-01-09] MEDS: Diltiazem 25 MG/5 ML SDV IVPUSH ONE ×3 (10:38→18:24)
[2024-01-09] MEDS: Furosemide 40 MG/4 ML VIAL IVPUSH SCH (12:35)
[2024-01-09] MEDS: Albuterol/Ipratropium 3.0-0.5 MG/3 ML Neb Soln NEB ONE (12:58)
[2024-01-09] MEDS: Melatonin 3 MG Tab PO PRN (22:03)
[2024-01-10 05:42] LABS: BASOPHILS ABSOLUTE AUTO 0.2 K/mm3 (0.0-0.2); BASOPHILS PERCENT AUTO 1.5 % (0.0-1.0); EOSINOPHILS ABSOLUTE AUTO 0.5 K/mm3 (0.0-0.4); EOSINOPHILS PERCENT AUTO 4.7 % (0.0-6.0); HEMATOCRIT 40.5 % (42.0-52.0); HEMOGLOBIN 13.2 gm/dl (14.0-18.0); IMMATURE GRAN ABSOLUTE AUTO 0.05 K/mm3 (0.00-0.05); IMMATURE GRAN PERCENT AUTO 0.5 % (0.0-0.4); LYMPHOCYTES ABSOLUTE AUTO 1.2 K/mm3 (1.0-4.8); LYMPHOCYTES PERCENT AUTO 11.4 % (24.0-44.0); MEAN CORPUSCULAR HEMOGLOBIN 30.1 pg (28.0-32.0); MEAN CORPUSCULAR HGB CONC 32.6 g/dl (32.0-36.0); MEAN CORPUSCULAR VOLUME 92.3 fl (83.0-99.0); MONOCYTES ABSOLUTE AUTO 0.8 K/mm3 (0.0-0.8); MONOCYTES PERCENT AUTO 7.8 % (0.0-8.0); NEUTROPHILS ABSOLUTE AUTO 7.8 K/mm3 (1.8-7.7); NEUTROPHILS PERCENT AUTO 74.1 % (41.0-71.0); PLATELET COUNT,PLT 333 K/mm3 (150-400); RED BLOOD CELL COUNT 4.39 M/mm3 (4.52-5.90)
[2024-01-10 05:58] LABS: ANION GAP 7.9 (5-15); CALCIUM 8.6 mg/dL (8.5-10.1); EST CRCL DRUG DOSING (CG) 62.49 mL/min; POTASSIUM,K 3.9 mEq/L (3.5-5.1)
[2024-01-10] MEDS: Albuterol/Ipratropium 3.0-0.5 MG/3 ML Neb Soln NEB SCH (10:23)
[2024-01-10] MEDS: Furosemide 40 MG/4 ML VIAL IVPUSH ONE (16:00)
[2024-01-11 05:41] LABS: BASOPHILS ABSOLUTE AUTO 0.2 K/mm3 (0.0-0.2); BASOPHILS PERCENT AUTO 1.7 % (0.0-1.0); EOSINOPHILS ABSOLUTE AUTO 0.6 K/mm3 (0.0-0.4); HEMATOCRIT 41.4 % (42.0-52.0); HEMOGLOBIN 13.2 gm/dl (14.0-18.0); IMMATURE GRAN ABSOLUTE AUTO 0.06 K/mm3 (0.00-0.05); IMMATURE GRAN PERCENT AUTO 0.6 % (0.0-0.4); LYMPHOCYTES ABSOLUTE AUTO 1.3 K/mm3 (1.0-4.8); MEAN CORPUSCULAR HEMOGLOBIN 29.9 pg (28.0-32.0); MEAN CORPUSCULAR HGB CONC 31.9 g/dl (32.0-36.0); MEAN CORPUSCULAR VOLUME 93.7 fl (83.0-99.0); MEAN PLATELET VOLUME 9.9 fl (9.4-12.4); MONOCYTES ABSOLUTE AUTO 0.8 K/mm3 (0.0-0.8); MONOCYTES PERCENT AUTO 7.2 % (0.0-8.0); NEUTROPHILS ABSOLUTE AUTO 7.6 K/mm3 (1.8-7.7); NEUTROPHILS PERCENT AUTO 72.5 % (41.0-71.0); PLATELET COUNT,PLT 303 K/mm3 (150-400); RED BLOOD CELL COUNT 4.42 M/mm3 (4.52-5.90); WHITE BLOOD CELL COUNT,WBC 10.41 K/mm3 (3.9-11.3)
[2024-01-11 06:08] LABS: ANION GAP 9.9 (5-15); CALCIUM 8.9 mg/dL (8.5-10.1); EST CRCL DRUG DOSING (CG) 62.49 mL/min; POTASSIUM,K 3.9 mEq/L (3.5-5.1)
[2024-01-11] MEDS: Furosemide 40 MG Tab PO SCH (08:39)
[2024-01-11] MEDS: Doxycycline 100 MG in Sodium Chloride 0.9% 100 ML IV SCH (09:39)
== END 2024-01-11 14:07 | disposition home or self-care (01) | DRG 871 ==
LOC: JD.ED 14:08 → JD.MS 01-05 08:13
PROVIDERS: ADMIT Family Medicine; ATTEND Family Medicine
DX: A41.9 Sepsis, unspecified organism (principal); J18.9 Pneumonia, unspecified organism; J86.9 Pyothorax without fistula; J96.01 Acute respiratory failure with hypoxia; N39.0 Urinary tract infection, site not specified; Z68.43 Body mass index [BMI] 50.0-59.9, adult; I50.32 Chronic diastolic (congestive) heart failure; N17.9 Acute kidney failure, unspecified; J44.0 Chronic obstructive pulmonary disease with (acute) lower respiratory infection; R65.20 Severe sepsis without septic shock; I25.2 Old myocardial infarction; G47.33 Obstructive sleep apnea (adult) (pediatric); E78.00 Pure hypercholesterolemia, unspecified; I25.10 Atherosclerotic heart disease of native coronary artery without angina pectoris; E11.9 Type 2 diabetes mellitus without complications; F41.9 Anxiety disorder, unspecified; I48.91 Unspecified atrial fibrillation; I11.0 Hypertensive heart disease with heart failure; H54.7 Unspecified visual loss; E66.01 Morbid (severe) obesity due to excess calories; G47.30 Sleep apnea, unspecified; E87.6 Hypokalemia; E87.5 Hyperkalemia; Z86.16 Personal history of COVID-19; Z79.01 Long term (current) use of anticoagulants; Z79.82 Long term (current) use of aspirin; Z87.891 Personal history of nicotine dependence; Z79.899 Other long term (current) drug therapy
CPT/HCPCS: 36415; 51798; 71045; 71045-26; 71046; 71046-26; 71260; 71260-26; 71275; 71275-26; 80048; 80053; 81001; 82947; 83036; 83605; 83735; 83880; 84132; 84443; 84484; 85025; 85379; 86140; 87040; 87070; 87086; 87205; 93005; 93010; 93306; 94640; 94660; 94668; 94761; 96365; 96366; 96368; 96375; 96376; 97110-GP; 97116-GP; 97161-GP; 99285; 99285-25; A9270-GY; J0612; J0696; J1815-GY; J1940; J2405; J2543; J3490; J7030; J7620-GY; Q9967

== ENCOUNTER 2024-12-04 20:59 | Emergency (ER) | payer MEDICARE, OTHER ==
[2024-12-05] MEDS: Ketorolac 60 MG/2 ML SDV IM ONE (00:12)
== END 2024-12-05 00:30 | disposition home or self-care (01) ==
LOC: JD.ED 20:59
DX: S52.502A Unspecified fracture of the lower end of left radius, initial encounter for closed fracture (principal); I10 Essential (primary) hypertension; E78.00 Pure hypercholesterolemia, unspecified; I25.2 Old myocardial infarction; E11.9 Type 2 diabetes mellitus without complications; Z86.16 Personal history of COVID-19; Z79.82 Long term (current) use of aspirin; Z79.899 Other long term (current) drug therapy; Z79.01 Long term (current) use of anticoagulants; W10.9XXA Fall (on) (from) unspecified stairs and steps, initial encounter; Y93.89 Activity, other specified
CPT/HCPCS: 29125; 73080; 73110; 96372; 99283; J1885; 99284